=== PATIENT | female | born 1975 | race African-American/Black ===

== ENCOUNTER → 2016-08-07 | Outpatient (CLI) | payer OTHER | LOC: RAD 15:07 | DX: B20 Human immunodeficiency virus [HIV] disease (principal); J45.909 Unspecified asthma, uncomplicated; R60.0 Localized edema ==

== ENCOUNTER → 2017-04-16 | Outpatient (CLI) | payer OTHER | LOC: RAD 07:56 | DX: S62.034A Nondisplaced fracture of proximal third of navicular [scaphoid] bone of right wrist, initial encounter for closed fracture (principal); X58.XXXA Exposure to other specified factors, initial encounter; Y93.89 Activity, other specified; Y92.89 Other specified places as the place of occurrence of the external cause; Y99.8 Other external cause status ==

== ENCOUNTER → 2019-05-27 | Outpatient (CLI) | payer OTHER ==
[2019-05-27 09:30] LABS: HEMATOCRIT 38.4 % (37.0-47.0); HEMOGLOBIN 12.6 gm/dL (12.0-15.0); MCH 29.6 pg (26.0-34.0); MCHC 32.7 g/dL (28.0-37.0); MCV 90.3 fL (80.0-100.0); RBC 4.25 mil/uL (4.20-5.00); RDW 13.7 % (10.5-14.5); WBC 9.5 thou/uL (4.0-11.0)
[2019-05-27 09:44] LABS: ALBUMIN 3.8 g/dL (3.4-5.0); CREATININE 0.9 mg/dL (0.6-1.0); TOTAL BILIRUBIN 0.3 mg/dL (<0.1-1.0); TOTAL PROTEIN 7.9 g/dL (6.4-8.2)
== END ==
LOC: RAD 08:50
PROVIDERS: Specialist
DX: R06.02 Shortness of breath (principal)

== ENCOUNTER → 2020-12-08 | Outpatient (CLI) | payer OTHER | LOC: SJCVCIMAG 12-07 07:46 | PROVIDERS: ATTEND Internal Medicine | DX: Z01.810 Encounter for preprocedural cardiovascular examination (principal); I07.1 Rheumatic tricuspid insufficiency; R06.00 Dyspnea, unspecified; R00.2 Palpitations; R07.9 Chest pain, unspecified ==

== ENCOUNTER → 2020-12-23 | Outpatient (CLI) | payer OTHER | LOC: RAD 09:39 | PROVIDERS: ATTEND Internal Medicine | DX: R06.00 Dyspnea, unspecified (principal) ==